=== PATIENT | female | born 1995 | race Caucasian/White ===

== ENCOUNTER 2017-10-10 17:33 | Emergency (ER) | payer OTHER ==
[2017-10-10 17:54] VITALS: TEMP 98.1; BMI 26.5
--- NOTE | 2017-10-10 17:56 | PDOC ---
Rapid Medical Evaluation Chief Complaint: Asthma Time Seen by Provider: 10/10/17 17:53 Medical Evaluation: Allergies Allergy/AdvReac Type Severity Reaction Status Date / Time No Known Allergies Allergy Verified 10/10/17 17:52 10/10/17 17:53 I have performed a brief in-person evaluation of this patient. The patient presents with a chief complaint of: Currently 19 weeks , p/ w sob/wheezing/cough x 1 week. Seen by pmd 3 days ago w/ oxygen of 92% and told ? allergies vs sob of . Sxs now worse and states cough meds/alb pump/ nebs not making it better. Denies h/o asthma Pertinent physical exam findings:Tachy to 114 w/ clear lungs, no obvious edema I have ordered the following:labs/ekg The patient will proceed to the ED for further evaluation. Discharge Disposition - Diagnosis SOB (shortness of breath) - Referrals - Patient Instructions - Post Discharge Activity
[2017-10-10 18:26] LABS: BASO % 0.1 % (0-2.0); EOS % 6.5 % (0-4.5); HEMATOCRIT 38.4 % (32.4-45.2); HEMOGLOBIN 13.2 GM/dL (10.7-15.3); LYMPH % 17.9 % (8-40); MCH 31.1 pg (25.7-33.7); MCHC 34.4 g/dl (32.0-36.0); MEAN CELL VOLUME 90.3 fl (80-96); MEAN PLT VOLUME 7.6 fl (7.5-11.1); NEUT % 61.5 % (42.8-82.8); PLATELET COUNT 311 K/MM3 (134-434); RBC 4.25 M/mm3 (3.60-5.2); RDW 13.2 % (11.6-15.6); WHITE BLOOD COUNT 9.4 K/mm3 (4.0-10.0)
[2017-10-10 18:58] LABS: ALBUMIN 3.2 g/dl (3.4-5.0); ALK PHOS 97 U/L (45-117); ANION GAP 9 (8-16); BILIRUBIN,TOTAL 0.2 mg/dL (0.2-1.0); BLOOD UREA NITROGEN 12 mg/dL (7-18); CALCIUM 8.6 mg/dL (8.5-10.1); CHLORIDE 103 mmol/L (98-107); CO2 26 mmol/L (21-32); CREATININE 0.8 mg/dL (0.55-1.02); GLUCOSE,RANDOM 84 mg/dL (74-106); POTASSIUM 3.8 mmol/L (3.5-5.1); SGOT/AST 69 U/L (15-37); SGPT/ALT 158 U/L (12-78); SODIUM 138 mmol/L (136-145); TOT PROT 7.4 g/dl (6.4-8.2)
[2017-10-10] MEDS ORDERED: ALBUTEROL SO4 2.5/IPRATROPIUM 0.5 INH SOL 3 ML VIAL.NEB. NEB ONE ×2 (19:28→20:01)
--- NOTE | 2017-10-10 19:34 | PDOC ---
Attending Attestation - Resident Resident Name: Abraham aDvid - ED Attending Attestation I have performed the following: I have examined & evaluated the patient, The case was reviewed & discussed with the resident, I agree w/resident's findings & plan, Exceptions are as noted - Physicial Exam PE: 10/10/17 19:47 Physical exam*Physical Exam General Appearance: Yes: Appropriately Dressed. No: Apparent Distress, Intoxicated HEENT: positive: EOMI, YOBANI, Normal ENT Inspection, Normal Voice, TMs Normal, Pharynx Normal. negative: Pale Conjunctivae, Photophobia, Scleral Icterus (R), Scleral Icterus (L) Neck: positive: Trachea midline, Normal Thyroid, Supple. negative: Tender, Rigid, Carotid bruit, Stridor, Lymphadenopathy (R), Lymphadenopathy (L), Thyromegaly Respiratory/Chest: positive: bilateral wheezing. . negative: Chest Tender, Respiratory Distress, Accessory Muscle Use, Labored Respiration, RES, Play Leader Cardiovascular: positive: Regular Rhythm, Regular Rate, S1, S2. negative: Edema , JVD, Murmur, Bradycardia, Tachycardia Vascular Pulses: Dorsalis-Pedis (R): 2+, Doralis-Pedis (L): 2+ Gastrointestinal/Abdominal: positive: Normal Bowel Sounds, Flat, Soft. negative : Tender, Organomegaly, Pulsatile Mass, Increased Bowel Sounds, Decreased BS, Distended, Guarding, Rebound, Hernia, Hepatomegaly, Spleenomegaly Lymphatic: negative: Adenopathy, Tenderness Musculoskeletal: positive: Normal Inspection. negative: CVA Tenderness, Decreased Range of Motion Extremity: positive: Normal Capillary Refill, Normal Inspection, Normal Range of Motion, Pelvis Stable. negative: Tender, Pedal Edema, Swelling, Erythema Integumentary: positive: Normal Color, Dry, Warm. negative: Cyanotic, Erythema , Jaundice, Rash Neurologic: positive: truck caterer II-XII NML intact, Fully Oriented, Alert, Normal Mood/ Affect, Motor Strength 5/5. negative: EOM Palsy, Facial Droop, Sensory Deficit <Giovanni Felder - Last Filed: 10/10/17 19:47> - HPI HPI: 10/10/17 20:09 The patient is a 21 year old female, , 19 wks , with past medical history of childhood asthma presents to the emergency department with SOB, wheezing and dry cough for the past 3 days. The patient was prescribed albuterol by her PCP, reports taking the medication without any relief. Denies fever, chills, or diaphoresis. Denies vaginal discharge or bleeding. Denies nausea, vomiting, diarrhea, and constipation. Allergies: NKDA Social history: None reported PCP: Dr. Connie Plascencia - Medical Decision Making 10/10/17 20:10 Documentation prepared by Jacinta Mendez, acting as certified medical aide for Giovanni Felder DO <Jacinta Mendez - Last Filed: 10/10/17 20:10>
[2017-10-10] MEDS ORDERED: MAGNESIUM SULF 50% (8.12 MEQ/2 ML-1 GM VIAL) IVPB ONE (19:46)
[2017-10-10] MEDS ORDERED: SODIUM CHLORIDE 0.9% 1000 ML INFUS.BAG IV ONE (19:47)
--- NOTE | 2017-10-10 19:49 | PDOC ---
History of Present Illness <Jacinta Mendez - Last Filed: 10/10/17 20:12> - General History Source: Patient Exam Limitations: No Limitations - History of Present Illness Initial Comments: 10/10/17 19:44 The patient is a 21F at 19 weeks who presents to the ER with complaints of cough, SOB, and wheezing since 3 days ago. The patient states that she has a hx of asthma as a child but has not had asthma since. She saw her PCP who gave her albuterol and she has used that without relief. The patient denies any productive cough, fever, chills, nausea, vomiting, abdominal cramping, vaginal bleeding, and discharge. She denies any sore throat and ear pain. She is unsure if she has seasonal allergies. <Abraham David - Last Filed: 10/10/17 21:51> - General Chief Complaint: Shortness of Breath Stated Complaint: ASTHMA/19 WKS Time Seen by Provider: 10/10/17 17:53 Past History <Jacinta Mendez - Last Filed: 10/10/17 20:12> - Suicide/Smoking/Psychosocial Hx Smoking History: Never smoked <Abraham David - Last Filed: 10/10/17 21:51> - Past Medical History Allergies/Adverse Reactions: Allergies Allergy/AdvReac Type Severity Reaction Status Date / Time No Known Allergies Allergy Verified 10/10/17 17:52 Review of Systems - Review of Systems Able to Perform ROS?: Yes Comments:: 10/10/17 21:01 GENERAL/CONSTITUTIONAL: No fever or chills. No weakness. HEAD, EYES, EARS, NOSE AND THROAT: No change in vision. No ear pain or discharge. No sore throat. CARDIOVASCULAR: No chest pain, palpitations, or lightheadedness. RESPIRATORY: Positive for cough, wheezing, and SOB. GASTROINTESTINAL: No nausea, vomiting, diarrhea, constipation, or abdominal pain. GENITOURINARY: No dysuria, frequency, hematuria, or change in urination. MUSCULOSKELETAL: No joint or muscle swelling or pain. No neck or back pain. SKIN: No rash or lesions. NEUROLOGIC: No headache, numbness, tingling, weakness, loss of consciousness, or change in strength/sensation. ENDOCRINE: No increased thirst. No abnormal weight change. HEMATOLOGIC/LYMPHATIC: No anemia, easy bleeding, or history of blood clots. ALLERGIC/IMMUNOLOGIC: No hives or skin allergy. Is the patient limited Israeli proficient: No <Abraham David - Last Filed: 10/10/17 21:51> *Physical Exam - Vital Signs Last Vital Signs Temp Pulse Resp BP Pulse Ox 98.1 F 86 20 107/76 100 10/10/17 17:52 10/10/17 18:49 10/10/17 17:52 10/10/17 17:52 10/10/17 18:49 <Jacinta Mendez - Last Filed: 10/10/17 20:12> - Vital Signs Last Vital Signs Temp Pulse Resp BP Pulse Ox 98.1 F 86 20 107/76 100 10/10/17 17:52 10/10/17 18:49 10/10/17 17:52 10/10/17 17:52 10/10/17 18:49 - Physical Exam Comments: 10/10/17 21:02 GENERAL: Well developed, well nourished. Awake and alert. No acute distress. HEENT: Normocephalic, atraumatic. Hearing grossly normal. Moist mucous membranes. PERRLA, EOMI. No conjunctival pallor. Sclera are non-icteric. Oropharynx is clear. NECK: Supple. Full ROM. Stridorous breath sounds noted in neck. CARDIOVASCULAR: Regular rate and rhythm. No murmurs, rubs, or gallops. PULMONARY: No evidence of respiratory distress. Transmitted adventitious breath sounds noted b/l. No wheezing, rales or rhonchi. ABDOMINAL: Soft. Non-tender. Non-distended. No rebound or guarding. GENITOURINARY: No CVA tenderness bilaterally. MUSCULOSKELETAL: Normal range of motion at all joints. No bony deformities or tenderness. EXTREMITIES: No cyanosis. No clubbing. No edema. No calf tenderness. SKIN: Warm and dry. Normal capillary refill. No rashes. No jaundice. NEUROLOGICAL: Alert, awake, appropriate. Cranial nerves 2-12 intact. Normal speech. Gait is normal without ataxia. PSYCHIATRIC: Cooperative. Good eye contact. Appropriate mood and affect. <Abraham David - Last Filed: 10/10/17 21:51> ED Treatment Course - LABORATORY CBC & Chemistry Diagram: 10/10/17 18:15 10/10/17 18:15 - ADDITIONAL ORDERS Additional order review: Laboratory Results 10/10/17 18:15 Sodium 138 Potassium 3.8 Chloride 103 Carbon Dioxide 26 Anion Gap 9 BUN 12 Creatinine 0.8 Creat Clearance w eGFR > 60 Random Glucose 84 Calcium 8.6 Total Bilirubin 0.2 AST 69 H ALT 158 H Alkaline Phosphatase 97 Total Protein 7.4 Albumin 3.2 L 10/10/17 18:15 RBC 4.25 MCV 90.3 MCHC 34.4 RDW 13.2 MPV 7.6 Neutrophils % 61.5 Lymphocytes % 17.9 Monocytes % 14.0 H Eosinophils % 6.5 H Basophils % 0.1 <Jacinta Mendez - Last Filed: 10/10/17 20:12> - LABORATORY CBC & Chemistry Diagram: 10/10/17 18:15 10/10/17 18:15 - ADDITIONAL ORDERS Additional order review: Laboratory Results 10/10/17 18:15 Sodium 138 Potassium 3.8 Chloride 103 Carbon Dioxide 26 Anion Gap 9 BUN 12 Creatinine 0.8 Creat Clearance w eGFR > 60 Random Glucose 84 Calcium 8.6 Total Bilirubin 0.2 AST 69 H ALT 158 H Alkaline Phosphatase 97 Total Protein 7.4 Albumin 3.2 L 10/10/17 18:15 RBC 4.25 MCV 90.3 MCHC 34.4 RDW 13.2 MPV 7.6 Neutrophils % 61.5 Lymphocytes % 17.9 Monocytes % 14.0 H Eosinophils % 6.5 H Basophils % 0.1 <Abraham David - Last Filed: 10/10/17 21:51> Medical Decision Making - Medical Decision Making 10/10/17 20:12 The EKG was read by Dr. David at 18:05:03. Vent. rate: 102 bpm MN interval: 146 ms QRS duration: 82 ms QT/QTc: 342/445 ms Sinus tachycardia <Jacinta Mendez - Last Filed: 10/10/17 20:12> - Medical Decision Making 10/10/17 21:03 The patient is a 21F who presents with complaints of cough and SOB. Will tx with breathing tx and reevaluate. Will give benadryl as this is possibly an allergic reaction. Will monitor closely. 10/10/17 21:48 Pt given mag, claritin, and famotidine. She states she feels better but has some nasal congestion. I have advised finishing her abx (z-pack) given by PCP and taking benadryl/claritin, as well as using her albuterol inhaler, as needed. On reexamination, she has improved aeration with very mild expiratory wheezes. Pt agrees and is ready for d/c. <FrankieAbraham - Last Filed: 10/10/17 21:51> *DC/Admit/Observation/Transfer <Jacinta Mendez - Last Filed: 10/10/17 20:12> - Discharge Dispostion Decision to Admit order: No <FrankieAbraham - Last Filed: 10/10/17 21:51> Diagnosis at time of Disposition: SOB (shortness of breath) - Discharge Dispostion Disposition: HOME Condition at time of disposition: Stable - Referrals Referrals: Connie Plascencia MD [Primary Care Provider] - - Patient Instructions Printed Discharge Instructions: Allergies, Respiratory (Alternative Therapy) Additional Instructions: Please follow up with your primary care physician in 2-3 days. You can take claritin or benadryl for your allergies and tylenol for pain as needed. Use your inhaler for shortness of breath. Please return to the ER if you have any signs or symptoms of chest pain, shortness of breath, uncontrollable fever, chills, nausea, vomiting, numbness, tingling, or weakness in any part of your body, changes in vision, or slurred speech. Please take your medications as prescribed. Please return to the ER if symptoms persist, worsen, or new symptoms arise. - Post Discharge Activity
[2017-10-10] MEDS ORDERED: MAGNESIUM SULF 50% (8.12 MEQ/2 ML-1 GM VIAL) ONE (20:01)
[2017-10-10] MEDS ORDERED: LORATADINE 10 MG TABLET PO ONE (21:06)
[2017-10-10] MEDS ORDERED: ALBUTEROL SO4 2.5/IPRATROPIUM 0.5 INH SOL 3 ML VIAL.NEB. NEB STA (21:06)
[2017-10-10 21:59] VITALS: BP 124/78; PULSE 105
--- NOTE | 2017-10-11 11:57 | EKG ---
Test Reason : Blood Pressure : / mmHG Vent. Rate : 102 BPM Atrial Rate : 102 BPM P-R Int : 146 ms QRS Dur : 082 ms QT Int : 342 ms P-R-T Axes : 064 081 050 degrees QTc Int : 445 ms SINUS TACHYCARDIA OTHERWISE NORMAL ECG NO PREVIOUS ECGS AVAILABLE Confirmed by FELICITA LAN MD ([id number]) on 10/11/2017 11:57:28 AM Referred By: Confirmed By:FELICITA LAN MD
== END 2017-10-10 22:06 | disposition home or self-care (01) ==
LOC: JER 17:33
PROC: 3E0F7GC Introduction of Other Therapeutic Substance into Respiratory Tract, Via Natural or Artificial Opening (ICD-10-PCS; principal; 2017-10-10)
PROC: 3E0F7GC Introduction of Other Therapeutic Substance into Respiratory Tract, Via Natural or Artificial Opening (ICD-10-PCS; 2017-10-10)
PROC: 3E033GC Introduction of Other Therapeutic Substance into Peripheral Vein, Percutaneous Approach (ICD-10-PCS; 2017-10-10)
DX: O99.89 Other specified diseases and conditions complicating pregnancy, childbirth and the puerperium (principal); R06.02 Shortness of breath; Z3A.19 19 weeks gestation of pregnancy; Z87.09 Personal history of other diseases of the respiratory system
CPT/HCPCS: 36415; 80053; 85025; 93005; 93010; 99283-25; J7030; J7620

== ENCOUNTER 2017-12-31 19:20 | Emergency (ER) | payer OTHER ==
[2017-12-31 19:29] VITALS: BP 125/72; TEMP 98.5; BMI 29.6
--- NOTE | 2017-12-31 19:35 | PDOC ---
Rapid Medical Evaluation Chief Complaint: Shortness of Breath Time Seen by Provider: 12/31/17 19:30 Medical Evaluation: Allergies Allergy/AdvReac Type Severity Reaction Status Date / Time No Known Allergies Allergy Verified 12/31/17 19:26 Vital Signs Temp Pulse Resp BP Pulse Ox 98.5 F 115 H 28 H 125/72 94 L 12/31/17 19:27 12/31/17 19:27 12/31/17 19:27 12/31/17 19:27 12/31/17 19:27 12/31/17 19:30 complain: Patient 37+wks present with complains of SOB starting this AM which has not improved with rescue inhaler or nebulizer treatment. Patient denies h/o Asthma but report she started having intermittent SOBs when she was 12wks and PCP gave her nebulizer machine and rescue inhaler as PCP felt she developed Asthma because of the . pt also report feeling of rapid heart beats which she contributes to albuterol rescue inhaler she used earlier and did nebulizer tx 2hrs ago exam:no respiratory distress. lungs: moderate diffused wheezing. no rhonchi or rales. cardio: rapid heart beat. reg rhythm order: EKG with NSR. f/u patient will proceed to ED for further evaluation 12/31/17 19:37 Discharge Disposition - Diagnosis SOB (shortness of breath) Asthma Qualifiers: Asthma severity: moderate Asthma persistence: unspecified Asthma complication type: with acute exacerbation Qualified Code(s): J45.901 - Unspecified asthma with (acute) exacerbation - Referrals - Patient Instructions - Post Discharge Activity
[2017-12-31] MEDS ORDERED: predniSONE 20 MG TABLET (UD) PO ONE (19:55)
[2017-12-31] MEDS ORDERED: predniSONE 20 MG TABLET (UD) ONE (19:56)
[2017-12-31] MEDS ORDERED: ALBUTEROL SO4 2.5/IPRATROPIUM 0.5 INH SOL 3 ML VIAL.NEB. NEB ONE ×2 (19:57→21:16)
--- NOTE | 2017-12-31 19:57 | PDOC ---
History of Present Illness - General Chief Complaint: Asthma Stated Complaint: SOB Time Seen by Provider: 12/31/17 19:30 - History of Present Illness Initial Comments: 22-year-old 37 week female presents for exacerbation of asthma times one day. Unrelieved by her home inhaler she reports to the ER for further evaluation treatment options. 12/31/17 19:57 Past History - Past Medical History Allergies/Adverse Reactions: Allergies Allergy/AdvReac Type Severity Reaction Status Date / Time No Known Allergies Allergy Verified 12/31/17 19:26 Home Medications: Ambulatory Orders Methylprednisolone [Medrol Dose [place]] 4 mg PO ASDIR #21 tablet 12/31/17 COPD: No - Suicide/Smoking/Psychosocial Hx Smoking History: Never smoked Review of Systems - Review of Systems Respiratory: Yes: Shortness of Breath, Wheezing All Other Systems: Reviewed and Negative *Physical Exam - Vital Signs Last Vital Signs Temp Pulse Resp BP Pulse Ox 98.5 F 115 H 28 H 125/72 94 L 12/31/17 19:27 12/31/17 19:27 12/31/17 19:27 12/31/17 19:27 12/31/17 19:27 - Physical Exam Comments: HEAD: NC/AT EYES: Conjuntiva clear Ears: Canals and TM's normal NOSE: No d/c THROAT: Moist mucous membrances, oral pharanx clear, uvula midline NECK: Supple without adenopathy CARDIAC: S1 S2 LUNGS: Full breath sounds bilaterally with expiratory wheezes left greater than right ABDOMEN: Soft NT ND MS: Full ROM in all joints without edema NEUROLOGIC: No gross sensory or motor deficits, NVID SKIN: Normal color and temperature no lesions or rashes 12/31/17 19:57 Medical Decision Making - Medical Decision Making 12/31/17 20:35 Symptoms relieved after second duo neb and steroids. *DC/Admit/Observation/Transfer Diagnosis at time of Disposition: SOB (shortness of breath) Asthma Qualifiers: Asthma severity: moderate Asthma persistence: unspecified Asthma complication type: with acute exacerbation Qualified Code(s): J45.901 - Unspecified asthma with (acute) exacerbation - Discharge Dispostion Disposition: HOME Condition at time of disposition: Improved Decision to Admit order: No - Referrals Referrals: Rufina Wolf MD [Primary Care Provider] - - Patient Instructions Printed Discharge Instructions: Asthma -- Adult Additional Instructions: Return to the emergency room should her symptoms come back. Please take the steroids as directed. Follow-up with her MANAGER SHIPPING as well as her primary care physician for further evaluation and treatment options in 1-2 days. - Post Discharge Activity
[2017-12-31] MEDS: ALBUTEROL SO4 2.5/IPRATROPIUM 0.5 INH SOL 3 ML VIAL.NEB. NEB SCH ×3 (20:01→21:19)
[2017-12-31] MEDS: predniSONE 10 MG TABLET (UD) PO ONE ×2 (20:01→21:19)
[2017-12-31 22:39] VITALS: PULSE 98
--- NOTE | 2018-01-01 16:26 | EKG ---
Test Reason : Blood Pressure : / mmHG Vent. Rate : 120 BPM Atrial Rate : 120 BPM P-R Int : 130 ms QRS Dur : 080 ms QT Int : 306 ms P-R-T Axes : 019 075 019 degrees QTc Int : 432 ms POOR DATA QUALITY, INTERPRETATION MAY BE ADVERSELY AFFECTED SINUS TACHYCARDIA OTHERWISE NORMAL ECG WHEN COMPARED WITH ECG OF 10-OCT-2017 18:05, NONSPECIFIC T WAVE ABNORMALITY, WORSE IN INFERIOR LEADS Confirmed by Tucker Jimenez MD ([id number]) on 01/01/2018 4:26:34 PM Referred By: Confirmed By:Tucker Jimenez MD
== END 2017-12-31 22:47 | disposition home or self-care (01) ==
LOC: JER 19:20 → JERFT 19:20
PROC: 3E0F7GC Introduction of Other Therapeutic Substance into Respiratory Tract, Via Natural or Artificial Opening (ICD-10-PCS; principal; 2017-12-31)
DX: O26.893 Other specified pregnancy related conditions, third trimester (principal); Z3A.37 37 weeks gestation of pregnancy; J45.901 Unspecified asthma with (acute) exacerbation; R06.02 Shortness of breath
CPT/HCPCS: 93005; 93010; 99281-25; J7620

== ENCOUNTER 2018-03-03 20:15 | Inpatient (IN) | payer OTHER ==
[2018-03-03] MEDS ORDERED: PROMETHAZINE HCL 25 MG/1 ML VIAL IVPUSH ONE (20:49)
[2018-03-03] MEDS ORDERED: BUTORPHANOL TARTRATE 1 MG/ML VIAL IVPB ONE (20:49)
[2018-03-03] MEDS ORDERED: ELECTROLYTE-148 SOLN 1,000 ML IV SCH (21:00)
[2018-03-03 21:49] LABS: BASO % 0.1 % (0-2.0); EOS % 0.2 % (0-4.5); HEMATOCRIT 39.1 % (32.4-45.2); HEMOGLOBIN 13.1 GM/dL (10.7-15.3); LYMPH % 14.2 % (8-40); MCH 30.5 pg (25.7-33.7); MCHC 33.4 g/dl (32.0-36.0); MEAN CELL VOLUME 91.2 fl (80-96); MEAN PLT VOLUME 8.7 fl (7.5-11.1); MONO % 10.7 % (3.8-10.2); NEUT % 74.8 % (42.8-82.8); PLATELET COUNT 296 K/MM3 (134-434); RBC 4.29 M/mm3 (3.60-5.2); WHITE BLOOD COUNT 14.7 K/mm3 (4.0-10.0)
[2018-03-03 22:02] LABS: INR 0.87 (0.83-1.09); PROTHROMBIN TIME (PATIENT) 10.3 SEC (9.7-13.0)
[2018-03-03 22:04] LABS: ACTIVATED PTT 24.7 SECONDS (25.2-36.5)
[2018-03-03 22:13] LABS: ANION GAP 9 MMOL/L (8-16); BLOOD UREA NITROGEN 13 mg/dL (7-18); CALCIUM 8.9 mg/dL (8.5-10.1); CHLORIDE 108 mmol/L (98-107); CO2 24 mmol/L (21-32); CREATININE 0.7 mg/dL (0.55-1.3); GLUCOSE,RANDOM 79 mg/dL (74-106); SODIUM 141 mmol/L (136-145)
[2018-03-03 23:32] VITALS: BMI 30.4
--- NOTE | 2018-03-04 00:50 | HP ---
Past Medical History - Admission Chief Complaint: Painful contractions. History of Present Illness: 22 y/o with SIUP at 39.6 weeks, painful contractions since this afternoon. complicated only by asthma. GBS negative. +FM, no VB/LOF. Declines pain medication. History Source: Patient, Medical Record Limitations to Obtaining History: No Limitations - Past Medical History Cardiovascular: No: HTN Pulmonary: Yes: Asthma Gastrointestinal: No: GERD Hepatobiliary: No: Hepatitis B, Hepatitis C ...: 2 ...Para: 0 ...LMP: 05/28/17 ... Weeks Gestation by Dates: 39.6 ...EDC by Dates: 03/04/18 Heme/Onc: No: Anemia Infectious Disease: No: HIV, MRSA, STD's Psych: No: Anxiety, Bipolar, Depression Endocrine: No: [place]'s Disease - Past Surgical History Past Surgical History: Yes: None Hx Myomectomy: No Hx Transabdominal Cerclage: No - Smoking History Smoking history: Never smoked - Alcohol/Substance Use Hx Alcohol Use: No - Social History History of Recent Travel: No Home Medications - Allergies Allergies/Adverse Reactions: Allergies Allergy/AdvReac Type Severity Reaction Status Date / Time No Known Allergies Allergy Verified 03/03/18 22:52 - Home Medications Home Medications: Ambulatory Orders Methylprednisolone [Medrol Dose [place]] 1 tab PO DAILY 02/28/18 Albuterol Sulfate Inhaler - [Ventolin Hfa Inhaler -] 2 inh PO Q4H 03/03/18 Vit Calc,Iron,Folic [ Vitamins] 1 each PO DAILY 03/03/18 Physical Exam - Maternity Vital Signs: Vital Signs Temperature 99.4 F 03/03/18 22:00 Pulse Rate 79 03/03/18 23:00 Respiratory Rate 20 03/03/18 23:00 Blood Pressure 102/59 L 03/03/18 23:00 O2 Sat by Pulse Oximetry (%) Constitutional: Yes: Well Nourished, No Distress, Calm Eyes: Yes: Conjunctiva Clear, EOM Intact HENT: Yes: Atraumatic, Normocephalic, Tonsillar Exudate Cardiovascular: Yes: Regular Rate and Rhythm Lungs: Clear to auscultation - Abdominal Exam/OB Fundal Height: 39 Number of Fetuses: Single Presentation: Vertex Contractions: Yes Regularity: Regular Intensity: Mod/Strong Heart Rate (range): 150 Category: I Accelerations: None Decelerations: None - Vaginal Exam/OB Speculum Exam: No Dilatation (cm): 7 Effacement (%): 90 Amniotic Membrane Status: Ruptured (AROM for clear fluid) Presentation: Vertex/Position Station: -2 - Physical Exam Extremities: Yes: WNL Edema: No Psychiatric: Yes: Alert, Oriented - Labs Lab Results: CBC, BMP 03/03/18 21:15 03/03/18 21:15 Hemorrhage Risk Assessment - Risk Factors Medium Risk Factors: Yes: None High Risk Factors: Yes: None Risk Score: 1 Risk Level: Medium Risk Problem List - Problems (1) Active labor at term Code(s): [id number] - Assessment/Plan 22 y/o with SIUP at 39.6 weeks, labor FHTS cat 1, periods of minimal variability but baby responses to scalp stimulation, no decelerations, overall reassuring ttracing AROM for clear fluid at this exam GBS negative continue expectant management
--- NOTE | 2018-03-04 04:39 | PN ---
Ante-Partal Exam - Subjective Subjective: Pt no longer tolerating contractions. Desires delivery. Vital Signs: Vital Signs Temperature 100.2 F H 03/04/18 02:52 Pulse Rate 84 03/04/18 02:52 Respiratory Rate 18 03/04/18 02:52 Blood Pressure 124/75 03/04/18 02:52 O2 Sat by Pulse Oximetry (%) Bleeding: No Headache: No Visual changes: No Right upper quadrant pain: No Pain (scale 1-10): 10 - Contractions Contractions: Yes Regularity: Regular Intensity: Strong - Exam during Labor Heart Rate: 150 Variability: Minimal Monitor Accelerations: Present Monitor Decelerations: None Exam: Vaginal Dilatation (cm): 6 Effacement (%): 90 Amniotic Membrane Status: Ruptured Presentation: Vertex Station: -2 - Assessment/Plan Assessment/Plan: Pt still 6cm dilated fanny every 1-2 minutes spontaneously discussed plan of care with pt - arrest of cervical dilation, unable to start pitocin due to frequency of uterine contractions pt desires delivery anesthesia and NICU made aware
[2018-03-04] MEDS ORDERED: ONDANSETRON 4 MG/2 ML VIAL IVPUSH PRN (04:41)
[2018-03-04] MEDS ORDERED: morphine SULFATE/Preservative Free 0.5 MG/ML (1cc Syringe) ONE (04:48)
[2018-03-04] MEDS ORDERED: OXYTOCIN 10 UNITS/ML VIAL ONE (04:52)
[2018-03-04] MEDS ORDERED: KETOROLAC TROMETHAMINE 30 MG/1 ML VIAL ONE (04:52)
[2018-03-04] MEDS ORDERED: SODIUM CHLORIDE 0.9% P/F 10 ML VIAL IJ ONE (04:55)
[2018-03-04] MEDS ORDERED: oxyCODONE HCL 5 MG TABLET PO PRN (05:05)
[2018-03-04] MEDS ORDERED: OXYTOCIN 20 UNITS in 0.9% NS 20 UNIT/1,000 ML INFUS.BAG IV ONE (06:37)
[2018-03-04] MEDS: ALBUTEROL SO4 8 GM HFA INHALER IH SCH ×5 (07:40→21:50)
[2018-03-04] MEDS ORDERED: ACETAMINOPHEN INJECTION 100 ML IVPB ONE (07:48)
[2018-03-04] MEDS: ACETAMINOPHEN 1000 MG/100 ML VIAL (NON FORMULARY) IVPB PRN ×3 (07:55→19:31)
[2018-03-04] MEDS: OXYTOCIN 20 UNITS in 0.9% NS 20 UNIT/1,000 ML INFUS.BAG IV SCH ×2 (08:00→13:54)
[2018-03-04] MEDS ORDERED: HYDROmorphone HCl 2 MG/ML VIAL IVPB PRN (08:21)
[2018-03-04] MEDS: methylPREDNISolone 4 MG TABLET PO SCH (09:55)
[2018-03-04] MEDS: PRENATAL VITAMINS W/ FOLIC ACID TABLET (FP) PO SCH (09:55)
[2018-03-04] MEDS ORDERED: TUBERCULIN PPD 5 TU/0.1ML SYRINGE (IN PATIENT USE ONLY) ID ONE (11:00)
--- NOTE | 2018-03-04 12:59 | PN ---
Progress Note (short form) - Note Progress Note: Anesthesia post op note. S/P under spinal with duramorph. VSS. Ambulating. Tolerating po. No apparent post anesthesia complications. Signed off.
[2018-03-05] MEDS: ALBUTEROL SO4 8 GM HFA INHALER IH SCH ×6 (01:28→21:48)
[2018-03-05] MEDS ORDERED: BISACODYL 10 MG SUPP.RECT RC PRN (05:05)
[2018-03-05] MEDS: oxyCODONE HCL 5 MG TABLET PO PRN ×3 (05:40→20:24)
[2018-03-05] MEDS: SIMETHICONE 80 MG TAB.CHEW (FP) PO PRN ×3 (05:40→20:24)
[2018-03-05] MEDS: ACETAMINOPHEN 325 MG TABLET (FP) PO PRN ×3 (05:41→20:24)
[2018-03-05 07:44] LABS: BASO % 0.2 % (0-2.0); EOS % 0.6 % (0-4.5); HEMOGLOBIN 10.9 GM/dL (10.7-15.3); LYMPH % 14.6 % (8-40); MCH 30.5 pg (25.7-33.7); MEAN CELL VOLUME 92.3 fl (80-96); MEAN PLT VOLUME 8.1 fl (7.5-11.1); MONO % 9.1 % (3.8-10.2); NEUT % 75.5 % (42.8-82.8); PLATELET COUNT 237 K/MM3 (134-434); RBC 3.58 M/mm3 (3.60-5.2); RDW 12.9 % (11.6-15.6); WHITE BLOOD COUNT 14.6 K/mm3 (4.0-10.0)
[2018-03-05] MEDS: PRENATAL VITAMINS W/ FOLIC ACID TABLET (FP) PO SCH (09:56)
[2018-03-05] MEDS: methylPREDNISolone 4 MG TABLET PO SCH (09:57)
--- NOTE | 2018-03-05 12:22 | OP ---
Operative Note - Note: Operative Date: 03/04/18 Pre-Operative Diagnosis: arrest of dilation Operation: primary delivery Findings: normal b/l tubes and ovaries, live male infant Post-Operative Diagnosis: Same as Pre-op Surgeon: Kat Mcdaniel Medical Information Specialist: Vern Wyatt Anesthesiologist/SOFTWARE TEST AUTOMATION ENGINEER: Yo Leblanc Anesthesia: Spinal Specimens Removed: placenta Estimated Blood Loss (mls): 600 Operative Report Dictated: Yes
--- NOTE | 2018-03-05 13:25 | OP ---
DATE OF OPERATION: 03/04/2018 PREOPERATIVE DIAGNOSES: Single intrauterine at 39.6 weeks' gestation, active labor, arrest of dilation. POSTOPERATIVE DIAGNOSES: Single intrauterine at 39.6 weeks' gestation, active labor, arrest of dilation. PROCEDURE: Primary low transverse section. SURGEON: Kat Mcdaniel DO FHA UNDERWRITER: HINA Jean ANESTHESIA: Spinal by ADELAIDE Benavidez. COMPLICATIONS: None. ESTIMATED BLOOD LOSS: 600 mL SPECIMENS: Placenta. FINDINGS: Normal bilateral tubes and ovaries. Live male infant. COUNTS: Sponge, needle, and instrument count correct. DISPOSITION: Stable to PACU. BRIEF HISTORY AND PROCEDURE: Patient is a 22-year-old female who had been admitted to [facility] on March 03, 2018, with complaints of painful contractions. The patient was found to be 4-5 cm dilated with bulging membranes at approximately 8:30 p.m. The patient was admitted to [facility] and allowed to progress expectantly throughout the evening. At approximately 11 p.m., the patient was found to be 6 cm dilated, and amniotic membranes were ruptured around 12:30 a.m. on March 04, 2018. The patient continued to be watched expectantly, was fanny every 1-2 minutes spontaneously, and approximately 4:30 in the morning, the patient was re-examined, still found to be 6 cm dilated at that time. The patient was requesting a section at this time, and the diagnosis of arrest of dilation was made. The patient signed consent for the delivery, and the patient was then taken back to the operating room. She was given spinal anesthesia and placed in the dorsal supine position on the operating room table. A Benedict catheter was placed under sterile conditions. She was prepped and draped in the usual sterile fashion, and a hard timeout was performed. A Pfannenstiel skin incision was created in the skin with a scalpel and carried to the underlying layer of rectus fascia sharply. The fascia was incised on either side of the midline, and the fascial incision was extended in a superolateral direction sharply. The fascia was tented upward and dissected off the underlying layer of rectus muscle sharply, and the musculature was identified in the midline and retracted laterally. The peritoneum was entered sharply and carefully dissected to allow for adequate room for delivery. A bladder blade was then inserted. A low transverse incision was created in the lower uterine segment, which was extended in a superolateral direction bluntly. The infant was then delivered from the left occiput transverse position without difficulty. Bilateral shoulders delivered with ease along with the remainder of the infant. The cord was clamped twice and cut in between, and the was taken to the warmer to be assessed by the neonatology staff who was present for the entire procedure. The 3-vessel cord was noted on the placenta which was delivered manually. At this time, the uterus was exteriorized from the abdomen, inspected, and cleared of all amniotic membrane and debris with a dry lap sponge. The hysterotomy was reapproximated in a double-layer closure first using 1 Vicryl in a running locked fashion, second using 0 Biosyn in a running fashion. Excellent hemostasis was achieved. Bilateral tubes and ovaries were inspected and noted to be normal. The posterior cul-de-sac was suctioned, and the uterus was then placed back into the abdomen. Bilateral gutters were inspected and cleared of blood clot and debris, and the hysterotomy was again noted to be hemostatic. The peritoneum was reapproximated using 2-0 chromic in a running fashion. The musculature was reapproximated in 2 interrupted sutures using 2-0 chromic and 0 Biosyn. The fascia was reapproximated using 1 Vicryl in a running fashion. Subcutaneous tissue was irrigated and reapproximated using 1 Vicryl, and the skin was reapproximated using 3-0 Vicryl in a subcuticular fashion. Steri-Strips were then applied. All sponge, needle, and instrument counts were reported to be correct. The patient was removed from the operating room and recovering in stable condition in the recovery room after the dictation. KAT MCDANIEL DO /[id number]
--- NOTE | 2018-03-05 15:40 | PN ---
Post Progress Note - Subjective Subjective: Pt seen/examined and feeling well. Some incisional pain but otherwise no complaints. VB minimal, tolerating diet, ambulating, voiding. Type of Delivery: Primary C/S Vital Signs: Vital Signs Temperature 97.9 F 03/05/18 10:00 Pulse Rate 68 03/05/18 10:00 Respiratory Rate 20 03/05/18 10:00 Blood Pressure 109/67 03/05/18 10:00 O2 Sat by Pulse Oximetry (%) 100 03/04/18 07:28 Breast Exam: Yes: Soft Uterus: Yes: Fundus Firm Incision: Yes: Sutures intact Abdomen/GI: Yes: Abdomen soft, Tender (appropriate post surgical tenderness), Passing flatus, Tolerating PO. No: Abdominal Distention Lochia: Yes: Rubra Lochia, amount: Small Extremities: No: Edema Perineum: Yes: Intact Activity: Ambulating - Labs Labs: CBC WBC 14.6 K/mm3 (4.0-10.0) H 03/05/18 07:00 RBC 3.58 M/mm3 (3.60-5.2) L 03/05/18 07:00 Hgb 10.9 GM/dL (10.7-15.3) 03/05/18 07:00 Hct 33.0 % (32.4-45.2) D 03/05/18 07:00 MCV 92.3 fl (80-96) 03/05/18 07:00 MCH 30.5 pg (25.7-33.7) 03/05/18 07:00 MCHC 33.0 g/dl (32.0-36.0) 03/05/18 07:00 RDW 12.9 % (11.6-15.6) 03/05/18 07:00 Plt Count 237 K/MM3 (134-434) 03/05/18 07:00 MPV 8.1 fl (7.5-11.1) 03/05/18 07:00 Absolute Neuts (auto) 11.1 K/mm3 (1.5-8.0) H 03/05/18 07:00 Neutrophils % 75.5 % (42.8-82.8) 03/05/18 07:00 Lymphocytes % 14.6 % (8-40) 03/05/18 07:00 Monocytes % 9.1 % (3.8-10.2) 03/05/18 07:00 Eosinophils % 0.6 % (0-4.5) D 03/05/18 07:00 Basophils % 0.2 % (0-2.0) 03/05/18 07:00 Nucleated RBC % 0 % (0-0) 03/05/18 07:00 Problem List - Problems (1) Active labor at term Code(s): TCC3551 - (2) delivery delivered Code(s): O82 - ENCOUNTER FOR DELIVERY WITHOUT INDICATION (3) Asthma Code(s): J45.909 - UNSPECIFIED ASTHMA, UNCOMPLICATED Qualifiers: Asthma severity: moderate Asthma persistence: unspecified Asthma complication type: with acute exacerbation Qualified Code(s): J45.901 - Unspecified asthma with (acute) exacerbation Assessment/Plan regular diet ambulation incentive spirometry albuterol prn routine post care
[2018-03-06] MEDS: ALBUTEROL SO4 8 GM HFA INHALER IH SCH ×6 (04:59→21:18)
[2018-03-06] MEDS: SIMETHICONE 80 MG TAB.CHEW (FP) PO PRN ×4 (05:00→21:15)
[2018-03-06] MEDS: ACETAMINOPHEN 325 MG TABLET (FP) PO PRN ×4 (05:00→21:15)
[2018-03-06] MEDS: oxyCODONE HCL 5 MG TABLET PO PRN ×3 (05:01→16:50)
[2018-03-06] MEDS: PRENATAL VITAMINS W/ FOLIC ACID TABLET (FP) PO SCH (10:08)
[2018-03-06] MEDS: methylPREDNISolone 4 MG TABLET PO SCH (10:11)
--- NOTE | 2018-03-06 20:44 | PN ---
Post Progress Note - Subjective Subjective: Pt doing well. Pain controlled with medication. Ambulating, voiding, passing flatus, tolerating diet. Lochia rubra minimal. No other complaints. Post Day: 2 Type of Delivery: Primary C/S Vital Signs: Vital Signs Temperature 98.3 F 03/06/18 10:00 Pulse Rate 61 03/06/18 10:00 Respiratory Rate 20 03/06/18 10:00 Blood Pressure 114/61 03/06/18 10:00 O2 Sat by Pulse Oximetry (%) 100 03/04/18 07:28 Uterus: Yes: Fundus Firm Incision: Yes: Sutures intact Abdomen/GI: Yes: Abdomen soft Lochia: Yes: Rubra Lochia, amount: Small Extremities: Yes: Calves non-tender. No: Edema Perineum: Yes: Intact Activity: Ambulating - Labs Labs: CBC WBC 14.6 K/mm3 (4.0-10.0) H 03/05/18 07:00 RBC 3.58 M/mm3 (3.60-5.2) L 03/05/18 07:00 Hgb 10.9 GM/dL (10.7-15.3) 03/05/18 07:00 Hct 33.0 % (32.4-45.2) D 03/05/18 07:00 MCV 92.3 fl (80-96) 03/05/18 07:00 MCH 30.5 pg (25.7-33.7) 03/05/18 07:00 MCHC 33.0 g/dl (32.0-36.0) 03/05/18 07:00 RDW 12.9 % (11.6-15.6) 03/05/18 07:00 Plt Count 237 K/MM3 (134-434) 03/05/18 07:00 MPV 8.1 fl (7.5-11.1) 03/05/18 07:00 Absolute Neuts (auto) 11.1 K/mm3 (1.5-8.0) H 03/05/18 07:00 Neutrophils % 75.5 % (42.8-82.8) 03/05/18 07:00 Lymphocytes % 14.6 % (8-40) 03/05/18 07:00 Monocytes % 9.1 % (3.8-10.2) 03/05/18 07:00 Eosinophils % 0.6 % (0-4.5) D 03/05/18 07:00 Basophils % 0.2 % (0-2.0) 03/05/18 07:00 Nucleated RBC % 0 % (0-0) 03/05/18 07:00 Problem List - Problems (1) Active labor at term Code(s): TKS5225 - (2) delivery delivered Code(s): O82 - ENCOUNTER FOR DELIVERY WITHOUT INDICATION (3) Asthma Code(s): J45.909 - UNSPECIFIED ASTHMA, UNCOMPLICATED Qualifiers: Asthma severity: moderate Asthma persistence: unspecified Asthma complication type: with acute exacerbation Qualified Code(s): J45.901 - Unspecified asthma with (acute) exacerbation Assessment/Plan POD#2 s/p section regular diet ambulation albuterol prn PO pain meds routine post care
[2018-03-06] MEDS: IBUPROFEN 600 MG TABLET (FP) PO PRN (21:15)
[2018-03-07] MEDS: ALBUTEROL SO4 8 GM HFA INHALER IH SCH ×6 (01:57→21:10)
--- NOTE | 2018-03-07 03:29 | DS ---
Physical Exam-LIFE ENRICHMENT MANAGER Vital Signs: Vital Signs Temperature 98.1 F 03/06/18 21:03 Pulse Rate 74 03/06/18 21:03 Respiratory Rate 20 03/06/18 21:03 Blood Pressure 122/80 03/06/18 21:03 O2 Sat by Pulse Oximetry (%) 100 03/04/18 07:28 Constitutional: Yes: Well Nourished, No Distress, Calm Eyes: Yes: Conjunctiva Clear, EOM Intact HENT: Yes: Atraumatic Neck: Yes: Supple Cardiovascular: Yes: Regular Rate and Rhythm Respiratory: Yes: WNL Gastrointestinal: Yes: Normal Bowel Sounds. No: Distention ....Post : Yes: Uterus firm, Uterus non-tender Wound/Incision: Yes: Clean/Dry, Well Approximated, Sutures Intact Neurological: Yes: Alert, Oriented Psychiatric: Yes: Alert, Oriented Labs: CBC, BMP 03/05/18 07:00 03/03/18 21:15 Delivery - Delivery Section: Primary, Low Flap Transverse Type of Anesthesia: Spinal Episiotomy/Laceration: None EBL (cc): 600 Delivery, Single - Stages of Labor Date 1st Stage Initiatied: 03/03/18 Time 1st Stage Initiated: 17:00 Date of Delivery: 03/04/18 Time of Delivery: 05:16 Time Placenta Delivered: 05:17 - Condition of Infant Pumper Gauger Apprentice/Billing Clerk Present: Yes Name: Valencia Peacock Infant Gender: Male Weight: 8 lb 6 oz Position: Left, OA Total Hours ROM (Hrs/Mins): 4h57m - 1 Minute Total Score: 5 5 Minutes Total Score: 9 - Feeding Plan Initial Plan: Elected not to breastfeed exclusively throughout hospitalization Discharge Summary Reason For Visit: LABOR ADMIT Current Active Problems Active labor at term (Acute) delivery delivered (Acute) Procedures: Principal: delivery Hospital Course: Pt admitted to hospital on 03/03/18 with painful contractions. Pt had arrest of cervical dilation and on the morning of 03/04/18 underwent an uncomplicated primary delivery. She then had an uncomplicated post op recovery and was discharged home on post op day 3. Condition: Good - Instructions Diet, Activity, Other Instructions: Physical activity Resume your normal everyday activity as tolerated no heavy lifting or strenuous exercise until seen by your surgeon. You may walk unlimited amounts and climb stairs. You may resume driving the car when you feel safe and comfortable behind the wheel. No sexual activity as instructed for 6 weeks. If you have tapes present on the wound/incision, they will fall off on their own. You may shower over them. You may shower daily, no soaking in tubs/ baths or pools until cleared by your doctor. Diet There are no dietary restrictions. Eat healthy, high-fiber foods. Drink 6 to 8 glasses of liquid each day. This will assist in keeping your bowels regular. Pain management You may take Tylenol or Ibuprofen (for example, Motrin, Advil etc.) for mild pain. If any pain prescription is sent to your pharmacy please take for moderate to severe pain as directed on the prescription. DO NOT DRIVE if taking narcotic medications. Call MD for any of the following: Severe pain not relieved by medication Fever of 101 or higher Excessive bleeding or drainage on dressing Inability to urinate Disposition: HOME - Home Medications Comprehensive Discharge Medication List: Ambulatory Orders Methylprednisolone [Medrol Dose Tawanda] 1 tab PO DAILY 02/28/18 Albuterol Sulfate Inhaler - [Ventolin Hfa Inhaler -] 2 inh PO Q4H 03/03/18 Vit Calc,Iron,Folic [ Vitamins] 1 each PO DAILY 03/03/18 Ibuprofen [Motrin -] 600 mg PO QID PRN #28 tablet 03/07/18 Oxycodone HCl/Acetaminophen [Percocet 5-325 mg Tablet -] 1 tab PO Q4H #30 tablet MDD 6 03/07/18
[2018-03-07] MEDS: IBUPROFEN 600 MG TABLET (FP) PO PRN ×3 (07:58→21:08)
[2018-03-07] MEDS: ACETAMINOPHEN 325 MG TABLET (FP) PO PRN ×3 (08:00→21:09)
[2018-03-07] MEDS: SIMETHICONE 80 MG TAB.CHEW (FP) PO PRN ×3 (08:00→21:08)
[2018-03-07 08:36] LABS: BASO % 0.3 % (0-2.0); EOS % 5.3 % (0-4.5); HEMATOCRIT 35.8 % (32.4-45.2); HEMOGLOBIN 11.6 GM/dL (10.7-15.3); LYMPH % 19.2 % (8-40); MCHC 32.5 g/dl (32.0-36.0); MEAN CELL VOLUME 92.3 fl (80-96); NEUT % 67.2 % (42.8-82.8); PLATELET COUNT 320 K/MM3 (134-434); RBC 3.87 M/mm3 (3.60-5.2); RDW 13.2 % (11.6-15.6); WHITE BLOOD COUNT 11.4 K/mm3 (4.0-10.0)
[2018-03-07] MEDS: methylPREDNISolone 4 MG TABLET PO SCH (10:16)
[2018-03-07] MEDS: PRENATAL VITAMINS W/ FOLIC ACID TABLET (FP) PO SCH (10:17)
[2018-03-07 11:17] LABS: ANISOCYTOSIS 1+; MACROCYTOSIS 0; PLATELET ESTIMATE NORMAL
[2018-03-08] MEDS: ALBUTEROL SO4 8 GM HFA INHALER IH SCH ×4 (01:15→14:24)
[2018-03-08] MEDS: methylPREDNISolone 4 MG TABLET PO SCH (09:46)
[2018-03-08] MEDS: PRENATAL VITAMINS W/ FOLIC ACID TABLET (FP) PO SCH (09:46)
[2018-03-08] MEDS: ACETAMINOPHEN 325 MG TABLET (FP) PO PRN (11:09)
[2018-03-08] MEDS: SIMETHICONE 80 MG TAB.CHEW (FP) PO PRN (11:09)
[2018-03-08] MEDS: IBUPROFEN 600 MG TABLET (FP) PO PRN (11:11)
[2018-03-08 11:46] VITALS: BP 133/77; PULSE 71; TEMP 98.4
--- NOTE | 2018-03-08 14:46 | PATH ---
Surgical Pathology Report Patient Name: JAJA ORDOÑEZ Med. Rec. #: [id number] /Age/Gender: 1995 (Age: 22) / F Account: [id number] Location: [facility] OBS/ROLL HAULER Taken: 03/04/2018 Received: 03/04/2018 Reported: 03/08/2018 Physicians: Kat Mcdaniel M.D. Specimen(s) Received PLACENTA Clinical History G2 P 40 weeks gestation, arrest of dilatation Final Diagnosis PLACENTA, SECTION: 424 G THIRD TRIMESTER PLACENTA WITH TRIVASCULAR UMBILICAL CORD AND MILD ACUTE CHORIOAMNIONITIS. Electronically Signed Jamee Alvarez M.D. Gross Description The specimen is received fresh labeled placenta and is a 424 gram, 14.5 x 12.5 x 3.7 cm. placenta with attached membranes and umbilical cord. The attached membranes are fields, translucent with focal opacities and insert marginally. The umbilical cord measures 31 cm. in length and averages 1.2 cm. in diameter. The cord inserts eccentrically, 4 cm. to the nearest margin. No true knots or strictures are identified. Cut surface of the umbilical cord reveals 3 vessels. The surface is hickman-blue with minimal fibrin deposition and appropriate caliber vessels. The maternal surface is red-brown with focal defects. Sectioning reveals red-brown, spongy parenchyma. No lesions are identified. Shear Operator Automatic sections are submitted in three cassettes as follows: 1- membrane rolls and umbilical cord; 2-3- full thickness sections of placenta. /03/07/2018 saudi03/07/2018
== END 2018-03-08 14:30 | disposition home or self-care (01) | DRG 540 ==
LOC: JDEL 20:15 → JLDR 20:35 → J3W 03-04 09:03
PROVIDERS: ADMIT Obstetrics & Gynecology; ATTEND Obstetrics & Gynecology
PROC: 10D00Z1 Extraction of Products of Conception, Low, Open Approach (ICD-10-PCS; principal; 2018-03-04)
PROC: 10907ZC Drainage of Amniotic Fluid, Therapeutic from Products of Conception, Via Natural or Artificial Opening (ICD-10-PCS; 2018-03-04)
DX: O62.0 Primary inadequate contractions (principal); O75.89 Other specified complications of labor and delivery; J45.901 Unspecified asthma with (acute) exacerbation; Z3A.39 39 weeks gestation of pregnancy; Z37.0 Single live birth
CPT/HCPCS: 36415; 59025; 59409; 80048; 85025; 85610; 85730; 86593; 86850; 86900; 86901; 88307-TC; J0131

== ENCOUNTER 2019-05-01 12:32 | Day surgery (SDC) | payer OTHER ==
[2019-03-12 13:23] VITALS: BMI 26.4
[2019-05-01 13:49] VITALS: TEMP 98.5
[2019-05-01] MEDS ORDERED: ALBUTEROL SO4 2.5/IPRATROPIUM 0.5 INH SOL 3 ML VIAL.NEB. NEB ONE (13:50)
[2019-05-01 14:40] VITALS: BP 113/86; PULSE 70
--- NOTE | 2019-05-05 14:56 | PATH ---
Surgical Pathology Report Patient Name: JAJA ORDOÑEZ [facility]. Rec. #: [id number] /Age/Gender: 1995 (Age: 23) / F Account: [id number] Location: [facility]ENDOSCOPY Taken: 05/01/2019 Received: 05/01/2019 Reported: 05/05/2019 Physicians: Nicolas Thornton D.O. Specimen(s) Received STOMACH/BODY/ANGULARIS Clinical History Abdominal pain Postoperative diagnosis: Same Final Diagnosis STOMACH/BODY/ANGULARIS, BIOPSY: MILD CHRONIC GASTRITIS. IMMUNOSTAIN IS NEGATIVE FOR H. PYLORI ORGANISMS. Electronically Signed Lidia Keenan M.D. Gross Description Received in formalin, labeled "biopsy stomach/body/angularis " are 3 fields, irregular portions of soft tissue ranging from 0.2-0.5 cm. in greatest dimension. The specimens are submitted in toto in one cassette. 05/02/201905/02/2019
== END 2019-05-01 14:40 | disposition home or self-care (01) ==
LOC: JASU-ENDO 12:32
PROVIDERS: ATTEND Internal Medicine Gastroenterology
PROC: 0DB68ZX Excision of Stomach, Via Natural or Artificial Opening Endoscopic, Diagnostic (ICD-10-PCS; principal; 2019-05-01 12:00)
DX: R10.9 Unspecified abdominal pain (principal); J45.909 Unspecified asthma, uncomplicated
CPT/HCPCS: 81025; 88305-TC; 88342-TC; 94640

== ENCOUNTER 2019-06-05 11:19 | Day surgery (SDC) | payer OTHER ==
[2019-05-29 12:34] VITALS: BMI 25.3
[2019-06-05] MEDS ORDERED: MIDAZOLAM HCL 2 MG/2 ML SINGLE DOSE VIAL ONE (11:34)
--- NOTE | 2019-06-05 11:34 | HP ---
CHIEF COMPLAINT: RUQ pain > 6 months PCP:[facility] HISTORY OF PRESENT ILLNESS: > 6 months post prandial RUQ pain; w/u revealed cholelithiasis and EGD was negative; she was intially seen in the office 2018. Recent Travel:none PAST MEDICAL HISTORY:asthma PAST SURGICAL HISTORY:none Social History: Smoking:none Alcohol:none Drugs: none Allergies No Known Allergies Allergy (Verified 05/29/19 12:44) HOME MEDICATIONS: Home Medications Medication Instructions Recorded Albuterol Sulfate Inhaler - 2 inh PO Q4H 03/03/18 [Ventolin Hfa Inhaler -] Budesonide/Formeterol Fumarate 1 inh PO BID 04/30/19 [SYMBICORT 160/4.5mcg -] REVIEW OF SYSTEMS CONSTITUTIONAL: Absent: fever, chills, diaphoresis, generalized weakness, malaise, loss of appetite, weight change HEENT: Absent: rhinorrhea, nasal congestion, throat pain, throat swelling, difficulty swallowing, mouth swelling, ear pain, eye pain, visual changes CARDIOVASCULAR: Absent: chest pain, syncope, palpitations, irregular heart rate, lightheadedness , peripheral edema RESPIRATORY: Absent: cough, shortness of breath, dyspnea with exertion, orthopnea, Present : wheezing, stridor GASTROINTESTINAL: Present: abdominal pain, abdominal distension, nausea, vomiting, Absent : diarrhea, constipation, melena, hematochezia GENITOURINARY: Absent: dysuria, frequency, urgency, hesitancy, hematuria, flank pain, genital pain MUSCULOSKELETAL: Absent: myalgia, arthralgia, joint swelling, back pain, neck pain SKIN: Absent: rash, itching, pallor HEMATOLOGIC/IMMUNOLOGIC: Absent: easy bleeding, easy bruising, lymphadenopathy, frequent infections ENDOCRINE: Absent: unexplained weight gain, unexplained weight loss, heat intolerance, cold intolerance NEUROLOGIC: Absent: headache, focal weakness or paresthesias, dizziness, unsteady gait, seizure, mental status changes, bladder or bowel incontinence PSYCHIATRIC: Absent: anxiety, depression, suicidal or homicidal ideation, hallucinations. PHYSICAL EXAMINATION GENERAL: Awake, alert, and fully oriented, in no acute distress. HEAD: Normal with no signs of trauma. EYES: Pupils equal, round and reactive to light, extraocular movements intact, sclera anicteric, conjunctiva clear. No lid lag. EARS, NOSE, THROAT: Ears normal, nares patent, oropharynx clear without exudates. Moist mucous membranes. NECK: Normal range of motion, supple without lymphadenopathy, JVD, or masses. ABDOMEN: Soft, nontender, not distended, normoactive bowel sounds, no guarding, no rebound, no masses. No hepatomegaly or splenomegaly. MUSCULOSKELETAL: Normal range of motion at all joints. No bony deformities or tenderness. No CVA tenderness. UPPER EXTREMITIES: 2+ pulses, warm, well-perfused. No cyanosis. No clubbing. No peripheral edema. LOWER EXTREMITIES: 2+ pulses, warm, well-perfused. No calf tenderness. No peripheral edema. NEUROLOGICAL: Cranial nerves II-XII intact. Normal speech. Normal gait. PSYCHIATRIC: Cooperative. Good eye contact. Appropriate mood and affect. SKIN: Warm, dry, normal turgor, no rashes or lesions noted, normal capillary refill. ASSESSMENT/PLAN: symptomatic gallbladder disease/cholelithiasis; for lap darien possible open; r/b /t/a's d/w the patient in the office and informed consent obtained. Teddy Warren MD FACS Visit type - Emergency Visit Emergency Visit: No - New Patient This patient is new to me today: No - Critical Care Critical Care patient: No
[2019-06-05] MEDS ORDERED: PROPOFOL 20 ML ONE (11:35)
[2019-06-05] MEDS ORDERED: LIDOCAINE HCL/PF 2% SDV 5ML VIAL ONE (11:35)
[2019-06-05] MEDS ORDERED: ROCURONIUM BROMIDE 50 MG/5 ML SYRINGE ONE (11:35)
[2019-06-05] MEDS ORDERED: SUCCINYLCHOLINE CHLORIDE 200 MG/10 ML SYRINGE ONE (11:36)
[2019-06-05] MEDS ORDERED: ceFAZolin SODIUM 1 GM VIAL IVPB ONE (12:37)
[2019-06-05] MEDS ORDERED: ONDANSETRON 4 MG/2 ML VIAL IVPUSH PRN (12:41)
[2019-06-05] MEDS ORDERED: BUPIVACAINE HCL/PF 0.5% (5 MG/ML) 30 ML VIAL IJ ONE ×2 (12:44)
[2019-06-05] MEDS ORDERED: LACTATED RINGERS SOLUTION 1,000 ML IV SCH (12:45)
[2019-06-05] MEDS ORDERED: NEOSTIGMINE METHYLSULFATE 0.5 MG/ML - 10 ML MDV ONE (13:21)
[2019-06-05] MEDS ORDERED: GLYCOPYRROLATE 0.2 MG/1 ML VIAL ONE (13:21)
[2019-06-05] MEDS ORDERED: ceFAZolin SODIUM 1 GM VIAL ONE ×2 (13:21)
--- NOTE | 2019-06-05 13:31 | OP ---
Operative Note - Note: Operative Date: 06/05/19 Pre-Operative Diagnosis: chronic cholecystitis/cholelithiasis Operation: laparoscopic cholecystectomy Findings: adhesions/cholelithiasis Post-Operative Diagnosis: Same as Pre-op Surgeon: Teddy Warren Sueding Machine Operator: Lucho Dotson Anesthesiologist/EXTERMINATOR HELPER TERMITE: Ambika Emerson Anesthesia: General Specimens Removed: gallbladder and contents Estimated Blood Loss (mls): 15
[2019-06-05] MEDS ORDERED: DEXAMETHASONE SOD PHOSPHATE 4 MG/1 ML VIAL ONE (13:32)
[2019-06-05] MEDS ORDERED: KETOROLAC TROMETHAMINE 30 MG/1 ML VIAL ONE (13:32)
--- NOTE | 2019-06-05 15:37 | SURG ---
Surgery Asbestos Microscopist Note Asbestos Microscopist: Lucho Dotson PA-C Date of Service: 06/05/19 Diagnosis: chronic cholecystitis/cholelithiasis Procedure: laparoscopic cholecystectomy I was present for the entirety of the operative procedure. For further detail, please refer to operative report. Visit type - Case Type Case Type: Scheduled - Emergency Emergency Visit: No - New patient This patient is new to me today: Yes Date on this admission: 06/05/19 - Critical Care Critical Care patient: No
[2019-06-05] MEDS ORDERED: ONDANSETRON 4 MG/2 ML VIAL IVPB ONE (15:45)
[2019-06-05] MEDS ORDERED: oxyCODONE HCL 5 MG TABLET PO PRN ×2 (16:35)
[2019-06-05] MEDS ORDERED: oxyCODONE HCL 5 MG TABLET ONE (16:47)
[2019-06-05 16:59] VITALS: TEMP 98.4
[2019-06-05] MEDS ORDERED: ONDANSETRON 4 MG/2 ML VIAL ONE (17:45)
[2019-06-05 19:14] VITALS: BP 113/77; PULSE 67
--- NOTE | 2019-06-06 15:45 | OP ---
DATE OF OPERATION: 06/05/2019 PREOPERATIVE DIAGNOSIS: Chronic cholecystitis and cholelithiasis. PREOPERATIVE DIAGNOSIS: Chronic cholecystitis and cholelithiasis. PROCEDURE: Laparoscopic cholecystectomy. SURGEON: Teddy Warren MD LOG CHAIN FEEDER: Lucho Dotson PA-C ANESTHESIA: General. OPERATIVE FINDINGS: Cholelithiasis and chronic cholecystitis. Omental adhesions to the gallbladder. The rest of the findings were unremarkable. DESCRIPTION OF PROCEDURE: The patient was placed on the operating room table in supine position. After the induction of general anesthesia, the patient's abdomen was prepped with ChloraPrep and draped in sterile fashion. Time-out was taken and then pneumoperitoneum established above the umbilicus using a Veress needle. Once 15 mm of intra-abdominal pressure was obtained, a 5-mm port was placed at the umbilicus. Additional lateral 5-mm ports and a subxiphoid 12-mm port were placed and laparoscopy carried out, and the previously noted findings were observed. The gallbladder was placed on cephalad and lateral traction, and dissection was begun at the neck of the gallbladder where the peritoneum was opened medially and laterally using blunt and sharp dissection and electrocautery. Dissection continued in the triangle of Calot where the cystic duct was identified coursing from the neck of the gallbladder distally to the common bile duct. It was dissected proximally and distally for length. Similarly, the artery was similarly identified and dissected. A critical view of safety was taken, and then the cystic duct divided proximally and distally using Endo Jocelyn after it was clipped twice proximally and distally with large hemoclips. The artery was similarly clipped and divided. Hemostasis was checked for and noted to be good and then the gallbladder was removed from the liver bed in a retrograde fashion using electrocautery. Prior to removal from the edge of the liver, hemostasis was again verified and then the gallbladder removed from the edge of the liver, placed in an EndoCatch, and brought out through the subxiphoid port. Pneumoperitoneum was reestablished, hemostasis verified again, and then the 5-mm lateral and subxiphoid ports were removed under laparoscopic vision without evidence of bleeding from the port sites. The umbilical port was removed and the pneumoperitoneum evacuated. All port sites were infiltrated with 0.5% Marcaine and the skin edges closed with 4-0 Biosyn in a subcuticular and continuous fashion. Steri-Strips and Band-Aid dressings were placed and the procedure terminated at this point and the patient aroused from general anesthesia and transferred to the post anesthesia care unit in stable condition awake and alert. ESTIMATED BLOOD LOSS: 15 mL. REPLACEMENTS: Crystalloid. DRAINS: None. SPECIMENS: Gallbladder and contents to Pathology. I, Teddy Warren, was physically present in the operating room from the time the patient was placed on the operating room table until she was transferred to the post anesthesia care unit in [employer]. MD AZUL Espinoza/[id number] MTDD
--- NOTE | 2019-06-09 15:53 | PATH ---
Surgical Pathology Report Patient Name: JAJA ORDOÑEZ Med. Rec. #: [id number] /Age/Gender: 1995 (Age: 23) / F Account: [id number] Location: [facility] SURGICAL Taken: 06/05/2019 Received: 06/06/2019 Reported: 06/09/2019 Physicians: Teddy Warren MD Specimen(s) Received GALLBLADDER Clinical History Cholelithiasis Final Diagnosis GALLBLADDER, LAPAROSCOPIC CHOLECYSTECTOMY: CHRONIC CHOLECYSTITIS, CHOLESTEROLOSIS, AND CHOLELITHIASIS. Electronically Signed Jamee Alvarez M.D. Gross Description Received in formalin, labeled "gallbladder," is a 9.3 x 2.7 x 2.6 cm. gallbladder with a 0.2 cm. in length portion of cystic duct attached. The outer surface is fields-ashford and varies from smooth to shaggy. The lumen contains green, tenacious bile as well as abundant yellow, irregular, bosselated choleliths ranging from 0.1-0.7 cm in greatest dimension. The mucosa is dark green and velvety. The wall of the gallbladder measures 0.1 cm. in thickness. Dish Maker sections are submitted in one cassette. DL/06/06/2019 saudi06/06/2019
== END 2019-06-05 19:10 | disposition home or self-care (01) ==
LOC: JASU-SURG 11:19
PROVIDERS: ATTEND Surgery
PROC: 0FT44ZZ Resection of Gallbladder, Percutaneous Endoscopic Approach (ICD-10-PCS; principal; 2019-06-05 13:00)
DX: K80.10 Calculus of gallbladder with chronic cholecystitis without obstruction (principal)
CPT/HCPCS: 84703; 88304-TC; 94760